=== PATIENT | male | born 1950 | race Caucasian/White ===

== ENCOUNTER 2018-12-22 09:31 | Emergency (ER) | payer MEDICARE, BC ==
[~2018-12-22] VITALS: Ht 190.5 cm; Wt 97.2 kg
[2018-12-22 09:49] VITALS: BP 136/82
--- NOTE | 2018-12-22 10:09 | NUR ---
Pt presents to ED with c/o left second toe pain related to per pt "ingrown toe nail." Skin surrounding toenail is red, swollen, and painful, intact. Pt is AOX4, ambulates with steady gait and balance with personal walker, and has unlabored respirations with even chest rise and fall. NADN. No needs expressed. Call light within reach.
[2018-12-22] MEDS ORDERED: LIDOCAINE-MPF 1%, 2ML ONE (10:25)
[2018-12-22] MEDS ORDERED: PLEASE ENTER ALLERGIES MC SCH (10:30)
[2018-12-22] MEDS ORDERED: LIDOCAINE-MPF 1%, 5ML INFIL ONE (10:30)
--- NOTE | 2018-12-22 11:13 | NUR ---
Patient given discharge instructions and they have confirmed that they understand the instructions. Patient ambulatory with steady gait and balance using personal walker. Pt left with d/c paperwork, prescription, and all personal belongings.
== END 2018-12-22 11:38 | disposition home or self-care (01) ==
LOC: ED 11:32
DX: L60.0 Ingrowing nail (principal); F17.200 Nicotine dependence, unspecified, uncomplicated
CPT/HCPCS: 11730; 99283

== ENCOUNTER 2019-03-09 09:28 | Emergency (ER) | payer MEDICARE, BC ==
[~2019-03-09] VITALS: Ht 190.5 cm; Wt 81.0 kg
--- NOTE | 2019-03-09 09:43 | NUR ---
ERMD IN TO [facility].
--- NOTE | 2019-03-09 10:00 | NUR ---
PT TAKEN TO XR
--- NOTE | 2019-03-09 11:09 | NUR ---
FRIENDS AT BS. PATIENT GIVEN URINAL
--- NOTE | 2019-03-09 11:28 | NUR ---
PT WITH DC ORDERS, PT NOT ABLE TO AMBULATE, PT STATES HE WILL BE ABLE TO TRANSFER FROM A WHEELCHAIR TO A FRIENDS CAR. PT TO CALL FRIEND
[2019-03-09 11:35] VITALS: BP 135/87
--- NOTE | 2019-03-09 12:13 | NUR ---
Patient/Caregiver given discharge instructions and they have confirmed that they understand the instructions. Patient ambulatory with steady gait.
== END 2019-03-09 12:14 | disposition home or self-care (01) ==
LOC: ED 11:25
DX: S20.212A Contusion of left front wall of thorax, initial encounter (principal); S00.83XA Contusion of other part of head, initial encounter; W19.XXXA Unspecified fall, initial encounter; Y93.89 Activity, other specified; Y92.009 Unspecified place in unspecified non-institutional (private) residence as the place of occurrence of the external cause; Y99.8 Other external cause status
CPT/HCPCS: 99283